=== PATIENT | female | born 1960 | race Caucasian/White ===

== ENCOUNTER 2017-04-26 11:26 | Day surgery (SDC) | payer MEDICAID ==
[2017-04-26 12:32] VITALS: O2SAT 100
[2017-04-26] MEDS ORDERED: Midazolam 2 MG/2 ML VIAL ONE (13:25)
[2017-04-26] MEDS ORDERED: Lactated Ringer's 1,000 ML IV ONE (13:25)
[2017-04-26] MEDS ORDERED: Propofol 10 mg/ml Inj (20 ML) ONE ×2 (13:25)
[2017-04-26] MEDS ORDERED: Lidocaine Hydrochloride 10 ML INJ ONE (13:25)
[2017-04-26 14:32] VITALS: TEMP 98.7
[2017-04-26 14:52] VITALS: BP 125/62; PULSE 64; RESP 13
== END 2017-04-26 14:50 | disposition home or self-care (01) ==
LOC: C.ENDO 11:26
PROVIDERS: ATTEND Internal Medicine
DX: K52.9 Noninfective gastroenteritis and colitis, unspecified (principal); R14.0 Abdominal distension (gaseous); K64.8 Other hemorrhoids; K29.60 Other gastritis without bleeding
CPT/HCPCS: 43239; 45380; 88305; 88313; 88342; J2250; J2704; J7120